=== PATIENT | female | born 1970 | race Caucasian/White ===

== ENCOUNTER 2023-07-20 18:28 | Emergency (ER) | payer OTHER, SELFPAY ==
[2023-07-20 18:45] VITALS: BP 124/80; PULSE 98; RESP 24; TEMP 36.8; O2SAT 90; BMI 34.3
--- NOTE | 2023-07-20 22:26 | ED_ITS ---
HPI - General Adult General Date Seen: 07/20/23 Chief complaint: Shortness of Breath/Dyspnea Stated complaint: asthma, trouble breathing Time Seen by Provider: 07/20/23 18:48 Source: patient and RN notes reviewed Mode of arrival: ambulatory Limitations: no limitations History of Present Illness HPI narrative: Patient is a 52-year-old woman with underlying asthma, she said that she had pretty severe asthma as a child but it has been well controlled as an adult. She was out at dinner, she says she had pizza and a cocktail, started feel short of breath, tried her inhaler on the way here but did not feel like it helped. On arrival she had O2 sats of 90% and was wheezy. By the time I saw her she had had a DuoNeb and was feeling back to normal. She denies any recent illness, cough, shortness of breath, fevers, congestion etcetera. She does not have any known allergies, did not take any ibuprofen or aspirin before this episode. Does not have chest pain, lower extremity swelling or pain. Related Data Allergies Allergy/AdvReac Type Severity Reaction Status Date / Time codeine AdvReac Intermediate Verified 07/20/23 18:51 erythromycin base AdvReac Intermediate Verified 07/20/23 18:51 Review of Systems Status of ROS: Reports: 6 or more systems reviewed and unremarkable except as noted in History and below Exam Narrative: Exam Narrative: Vital signs as noted above. In general, an alert, well-appearing patient. Breathing easily. Head: Normocephalic, atraumatic. Eyes: Pupils are equal reactive. Extraocular movements are full. Conjunctivae are normal. ENT: Mucous membranes are moist. Throat is normal. Neck: Supple without lymphadenopathy. Heart: Regular rate and rhythm. No murmur or rub. Lungs: Clear bilaterally. No increased work of breathing, crackles or wheezes. Extremities: Well perfused. No edema. No calf tenderness. Pulses intact. Neurologic: Patient is alert and oriented to person and place. Speech is fluent. Face is symmetric. Moves all extremities equally. Affect: Normal. Skin: Warm and dry. Well perfused. Const: Vital Signs, click to edit/add: Vital Signs - 24 hr 07/20/23 18:45 Temperature 98.3 F Pulse Rate [Right Pulse Oximeter] 98 Respiratory Rate 24 Blood Pressure [Ri ght Upper Arm] 124/80 Pulse Oximetry 90 Oxygen Delivery Me thod Room Air Documenting provider has reviewed patient's vital signs: yes Course Course ED Course: At the time of my exam, symptoms are resolved status post DuoNeb x1. Her O2 sats are 100% on room air, she has no shortness of breath or wheezing. I have low suspicion of pneumonia, pneumothorax, PE etcetera given her presentation. Offered chest x-ray but also discussed that it is probably low yield and she wo uld like to defer that for tonight. I think it is reasonable to put her on some prednisone for a few days, have her continue to use her rescue inhaler as needed. If she has significant worsening or new symptoms such as chest pain, fever, shortness of breath that does not improve with her rescue inhaler return at any time. Primary care follow-up if she is having repeated episodes of this, as a search for an allergen may be warranted. Vital Signs Vital signs: Initial Vital Signs Temperature 98.3 F 07/20/23 18:45 Temperature Source Temporal Artery Scan 07/20/23 18:45 Pulse Rate 98 07/20/23 18:45 Pulse Rhythm Regular 07/20/23 18:45 Pulse Strength 3+ Normal 07/20/23 18:45 Respiratory Rate 24 07/20/23 18:45 Blood Pressure 124/80 07/20/23 18:45 Blood Pressure Mean 94 07/20/23 18:45 Blood Pressure Position Sitting 07/20/23 18:45 Pulse Oximetry 90 07/20/23 18:45 Oxygen Delivery Method Room Air 07/20/23 18:45 Vital Signs Temperature 98.3 F 07/20/23 18:45 Pulse Rate 98 07/20/23 18:45 Respiratory Rate 24 07/20/23 18:45 Blood Pressure 124/80 07/20/23 18:45 Pulse Oximetry 90 07/20/23 18:45 Oxygen Delivery Method Room Air 07/20/23 18:45 Temperature 98.3 F 07/20/23 18:45 Pulse Rate 98 07/20/23 18:45 Respiratory Rate 24 07/20/23 18:45 Blood Pressure 124/80 07/20/23 18:45 Pulse Oximetry 90 07/20/23 18:45 Oxygen Delivery Method Room Air 07/20/23 18:45 Discharge Plan Discharge Clinical Impression: Asthma with acute exacerbation Patient Disposition: Home, Self-Care Condition: Improved Instructions: Asthma (DC) Additional Instructions: Prednisone as prescribed. For acute worsening not responsive to your rescue inhaler return any time to the emergency department. For new symptoms such as fever, cough, chest pain, return to the emergency department. Recommend primary care follow-up and/or allergy follow-up for recurrent events. Activity Level: No Restrictions Discharge Diet: Regular Stand Alone Forms: [employer] Info Instructions
== END 2023-07-20 19:43 | disposition home or self-care (01) ==
LOC: ED 19:42
PROVIDERS: Emergency Provider Emergency Medicine
DX: J45.901 Unspecified asthma with (acute) exacerbation (principal)
CPT/HCPCS: 99283; 99284

== ENCOUNTER 2024-10-31 20:14 | Emergency (ER) | payer OTHER, SELFPAY ==
--- OUTSIDE RECORDS SUMMARY | 2024-10-31 20:16 | XMS_ITS | Clinical Summary ---
Author Organization [facility] [employer] Address [address] [place] [address] Care Team Providers Care Sales Coach Name Role Phone Trina Brooks APRN, CNP Primary Care Provider Source Comments You are receiving this document as you are listed as the primary care provider,follow-up provider, or the patient has been referred to you for consultation.This is in compliance with the Medicare and[facility] EHR Incentive Program,which states Providers who transition their patient to another setting of careor provider of care or refers their patient to another provider of care shouldprovide summary care record for each transition of care or referral. [employer] Allergies Active Allergy Reactions Criticality Noted Date Comments Codeine 05/03/2010 PN: LW Reaction: unknown Erythromycin 02/23/2008 PN: LW Reaction: GI Upset Other 02/11/2010 PN: LW Other1: -Needs anti nausea medication before narcotics. Review Food Intolerance 05/04/2010 PN: LW FI1: nka LW FI2: nka Wasp Venom Anaphylaxis High 09/13/2018 Medications * This document contains information received from the source organization and may not represent a complete record from that organization. cyanocobalamin (VITAMIN B12) 1000 MCG tablet once a week. 1 Active ALBUterol sulfate HFA 108 (90 Base) MCG/ACT inhalerIndication s:Mild intermittent asthma without complication ([place]) Inhale 2 Puffs every 4 hours as needed for Wheezing. 8.5 g 11 8 Active EPINEPHrine (EPIPEN 2-ARLENE) 0.3 MG/0.3ML injection Inject 0.3 mL (0.3 mg) intramuscularl y. 3 Active sodium fluoride dental (PREVIDENT) 1.1 % gel Apply thin ribbon to teeth with toothbrush or mouthpiece tray for at least 1 minute. Spit out gel and rinse mouth thoroughly. 60 g 6 3 Active sodium fluoride dental (PREVIDENT) 1.1 % gel Apply thin ribbon to teeth with toothbrush for at least 1 minute. Spit out gel and do not rinse mouth eat or drink for 30 min 60 g 6 5 Active Active Problems Problem Noted Date Diagnosed Date Cervical cancer screening 03/19/2018 Overview (03/19/2018): From 03-08-18 office note: Pt would like her pap smear collected as it has been > 7 years since her last pap 2004 NILM ([facility]) 09/2005 LSIL/HSIL ([facility]) 01/2006 LSIL ([facility]) 2010 [place] 2017 ASCUS; HPV NEG 47 y.o. Plan: Cotesting 02/2021 Asthma, intermittent 05/18/2014 Vulvovaginal itching 12/01/2013 Overview (12/01/2013): Wet [place] showed BV, Rx Metrogel Overweight 04/12/2011 Overview (01/03/2017): Overweight(278.02) ([place]) Depression 01/10/2011 Status post bariatric surgery 01/10/2011 B12 deficiency 01/10/2011 Asthma 02/14/2010 Overview (01/03/2017): Asthma NOS Resolved Problems Problem Noted Date Diagnosed Date Resolved Date Morbid obesity 02/14/2010 04/12/2011 Overview (01/03/2017): Obesity Morbid Immunizations Immunization Administration Dates Next Due DT Ped 02/24/1991 Influenza IIV4 (Quadrivalent) 0.5mL (23121) 02/12 Influenza, Unspecified Formulation 04/12/1989 MMR 10/29/1989 Td 05/14/1999 Tdap 01/13/2010 Social History Tobacco Use Types Packs/Day Years Used Date Smoking Tobacco: Former Cigarettes Q uit: 12/13/1999 Smokeless Tobacco: Never Alcohol Use Standard Drinks/Week Comments Yes 0 (1 standard drink = 0.6 oz pure alcohol) Alcoholic Drinks/day: Amount:3-4 drinks every week Comments No Sex and Gender Information Value Date Recorded Sex Assigned at Not on file Legal Sex Female 4:19 PM CDT Gender Identity Not on file Sexual Orientation Not on file Last Filed Vital Signs Vital Sign Reading Time Taken Comments Blood Pressure 109/71 09/23/2018 3:46 PM CDT Pulse 72 08/27/2023 10:28 AM CDT Temperature 36.6 C (97.9 F) 08/25/2016 1:53 PM CDT Respiratory Rate 20 03/08/2018 3:59 PM CDT Oxygen Saturation 98% 03/08/2018 3:59 PM CDT Inhaled Oxygen Concentration - - Weight 96.6 kg (213 lb) 03/08/2018 3:59 PM CDT Height 160 cm (5' 3) 03/08/2018 3:59 PM CDT Body Mass Index 37.73 03/08/2018 3:59 PM CDT Plan of Treatment Upcoming Encounters Date Type Department Care Team (Late st Contact Info) Description 11/19/2024 9:00 AM CDT Appointment [facility] [place] [id number] [place] [phone] [facility] [id number] [place] [address] [phone] Health Maintenance Due Date Last Done Comments Colon Cancer Screening Plan Due 1970 Hep C Screening (Preventive Services) 1970 Adult Preventive Visit 08/25/1987 HepB Vaccine (1) 1988 Pneumococcal Vaccine 50+ Yrs (2 of 2 - PCV) 08/25/2019 08/10/2003 Cholesterol 04/26/2020 04/26/2015, 06/14, 06/09/2013, Additional history exists Cervical Cancer Screening 03/08/2021 03/08/2018 COVID-19 Vaccine ( season) 2024 03/09/2023, 05/09/2022, 04/03/2021, Additional history exists Influenza Vaccine (Season Ended) 2025 03/09/2023, 05/09/2022, 01/31/2019, Additional history exists Mammogram 03/07/2025 03/07/2024, 09/22/2022 DTaP/Tdap/Td Vaccine (5 - Tdap) 08/03/2032 08/03/2022, 01/13/2010, 05/14/1999, Additional history exists HepA Vaccine Aged Out 03/09/2004, 08/10/2003 No lo nger eligible based on patient's age to complete this topic HIV Screening (Preventive Services) Completed 09/27/2005 Zoster/Shingles Vaccine Completed 10/23/2022, 08/03 Hib Vaccine Aged Out No longer eligi ble based on patient's age to complete this topic IPV (Polio) Vaccine Aged Out No longe r eligible based on patient's age to complete this topic MCV4 Vaccine Aged Out No longer eligi ble based on patient's age to complete this topic Meningococcal B Vaccine Aged Out No l onger eligible based on patient's age to complete this topic Procedures Procedure Name Priority Date/Time Associated Diagnosis Comments PAP TEST, ROUTINE Routine 03/08/2018 7:3 5 PM CDT Screening for cervical cancer LIPID PANEL & DIRECT LDL (IF NEEDED) Routine 04/26/2015 10:53 AM PRODUCE BUYER Intestinal malabsorption, unspecified intestinal malabsorption from Last 3 Months or Most Recently Relevant to Health Maintenance Results * PAP TEST, ROUTINE (03/08/2018 7:35 PM CDT) Cytology, Pap (NOTE) Miniature Set Builder Cytology Report Patient Name: LINK WASHINGTON Taken: 03/08/2018 Received: 03/11/2018 Reported: 03/19/2018 Physician(s): TRINA BROOKS Source of Specimen Pap Test, Routine Cervical/Endocer vical: Specimen Adequacy Satisfactory for evaluation. Endocervical component absent. Final Cytologic Interpretation/R esult EPITHELIAL CELL ABNORMALITIES Atypical squamous cells, undetermined significance (ASC-US). *Electronically Signed Out By* MD Tracey Patel(ASCP) Pap Smear History Date of Last Menstrual Period: Menopausal Microscopic Description Microscopic examination is performed. [facility] Department of Pathology [address] [place] [id number] [place] [address] LABORATORIES 03/08/2018 7:35 PM CDT 03/11/2018 2:15 PM CDT Trina Brooks HOSPITALITY SPECIALIST, SITE SAFETY COORDINATOR LAB_1 Final R esult [facility] [phone] * Lipid Panel and Direct LDL(If Needed) (04/26/2015 10:53 AM PRODUCE BUYER) Cholesterol 130 0 - 200 mg/dL HP CONVERSION Triglycerides 53 0 - 149 mg/dL HP CONVERSION HDL Cholesterol 62 >39 mg/dL HP CONVERSION Cholesterol/HDL Ratio Screen 2.1 HP CONVERSION LDL Calculated 57 19 - 130 mg/dL HP CONVERSION Hours Fasting 12.0 HP CONVERSION 04/26/2015 10:5 3 AM PRODUCE BUYER 04/26/2015 11:00 AM PRODUCE BUYER Narrative HP CONVERSION - 04/26/2015 11:40 AM PRODUCE BUYER [place] [address] CLIA number [id number] us Shreya Hoang HOSPITALITY SPECIALIST, SITE SAFETY COORDINATOR LAB_1 Final Result HP CONVERSION from Last 3 Months or Most Recently Relevant to Health Maintenance Insurance [employer] Care Teams Sales Coach Relationship Specialty Start Date End Date Trina Brooks, JOHN, SITE SAFETY COORDINATOR [address] [place] [address] PCP - General Nurse Practitioner 03/08/18
--- OUTSIDE RECORDS SUMMARY | 2024-10-31 20:16 | XMS_ITS | Clinical Summary ---
Author Organization [facility] Address [address] [place] [id number] Care Team Providers Care Farm Operator Name Role Phone Elizabeth Pickett MD Primary Care Provider [phone] Allergies Active Allergy Reactions Criticality Noted Date Comments Codeine 08/25/2005 Erythromycin 08/25/2005 Venom-Wasp Anaphylaxis High 09/13/2018 Medications cyanocobalamin , vitamin B-12, 2,000 mcg tabIndications :S/P gastric bypass,Vitamin B 12 deficiency Take by mouth. 90 Tablet 3 10/05/19 23 Active inhalational spacing deviceIndicati ons:Moderate asthma with exacerbation, unspecified whether persistent (HC) For home use. 1 Each 09/17/19 24 Active EPINEPHrine (EPIPEN) 0.3 mg/0.3 mL auto-injectorI ndications:Bee sting allergy Inject 0.3 mg (1 Pen) intramuscular each time if needed for Allergic Reaction. 2 Each 3 01/18/20 24 Active Ventolin HFA 90 mcg/actuation inhalerIndicat ions:Cough, unspecified type INHALE ONE OR TWO PUFFS BY MOUTH EVERY FOUR HOURS NEEDED FOR SHORTNESS OF BREATH 18 g 10/25/19 25 Active albuterol HFA (PRO-AIR; VENTOLIN; PROVENTIL) 90 mcg/actuation inhalerIndicat ions:Cough, unspecified type Inhale 1-2 Puffs by mouth every 4 hours if needed for Shortness Of Breath. 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 for high grade squamous intraepithelial lesion (HGSIL) on cytologic smear of cervix 09/11/2005 Overview (08/25/2022): 09/2005 LSIL-H; no colposcopy 01/2006 LSIL encompassing SUE I; no colposcopy 02/2018 ASCUS/HPV negative 07/2022 NIL/HPV negative Plan: Pap/HPV due in 3 years Unspecified asthma(493.90) Encounters Date Type Department Care Team Description 10/22/2024 Refill [facility] [address] [place], [place] [id number] Laurie Zhu MD Refill Request (Ventolin Hfa) from Last 3 Months Immunizations Immunization Administration Dates Next Due COVID-19 VACCINE COMIRNATY ( PFIZER-BIONTECH 30MCG/0.3ML) 12YO+ PFS 03/09/2023 COVID-19 vaccine (Pfizer-Bio NTech 30mcg/0.3mL) 12YO+ BIVALENT PF, MDV 05/09/2022 COVID-19 vaccine (Pfizer-Bio NTech 30mcg/0.3mL) PF, MDV 04/03/2021,07/30/2020,07/13/2020 DT (Age < 7 years) 02/24/1991 Hepatitis A (Adult) 03/09/2004,08/10/2003 Hepatitis B (Adult) 03/23/2004 INFLUENZA, IIV3 PF (AGE >= 6 MO) 01/18/2024 Influenza Virus, Unspecified 04/12/1989 Influenza, IIV3 (Age >=3 years) 02/28/2010,03/09 Influenza, IIV4 03/09/2023,05/09/2022,03/08/2018 Influenza, IIV4 (=>6mos) MDV 01/31/2019 MMR 10/29/1989 Pneumococcal Poly,23-Valent (Pneumovax) 08/10/19 04 Td (Age >=7 Years) 05/14/1999 Tdap 08/03/2022,01/13/2010 Zoster (Shingrix-RZV, recombinant) 10/23/2022, Family History Medical History Relation Name Comments No Known Problems Brother Hensley's esophagus Father Cancer-breast Maternal Grandmother Twyla Long Stroke Maternal Grandmother Twyla Long TIA Cancer-colon Maternal Uncle COPD Mother Mom Diverticulitis Mother Mom Hypertension Mother Mom Other Mother Mom from Covid -19 Stroke Paternal Grandfather TIA, fl u Thyroid Disease Paternal Grandmother Heather Cancer-colon Paternal Uncle Orval Diverticulitis Sister Cancer No Family History Cancer-ovarian No Family History Relation Name Status Comments Brother Alive Father Alive Maternal Grandmother Twyla Long Maternal Uncle Mother Mom Paternal Grandfather Paternal Grandmother Heather Paternal Uncle Orval Sister Alive Social History Tobacco Use Types Packs/Day Years Used Date Smoking Tobacco: Former Cigarettes 0.5 15 0 05/14/1984 - 1999 Smokeless Tobacco: Never Tobacco Cessation:Counseling Given: Not Answered Alcohol Use Standard Drinks/Week Comments Yes 2 (1 standard drink = 0.6 oz pur e alcohol) PHQ-2 Answer Date Recorded PHQ-2 TOTAL SCORE 0 01/18/2024 Social Connections Answer Date Recorded Do you often feel lonely or isolated from those around you? 0 01/17/2024 Financial Resource Strain Answer Date R ecorded Difficulty of Paying Living Expenses 3 01/17/2024 Difficulty of Paying Living Expenses Not on file 01/17/2024 Food Insecurity Answer Date Recorded Do you worry your food will run out before you are able to buy more? 1 01/17/2024 Transportation Needs Answer Date Record ed Does lack of transportation keep you from medica l appointments? 1 01/17/2024 Does lack of transportation keep you from work, meetings or getting things that you need? 1 01/17/2024 Housing Stability Answer Date Recorded What is your housing situation today? 1 01/17/2024 Utilities Answer Date Recorded Do you have trouble paying f or utilities (for example, heat, electricity, water, phone)? 1 01/17/2024 Comments No Sex and Gender Information Value Date Recorded Sex Assigned at Not on file Legal Sex Female 5:35 AM BROKE BEATER Gender Identity Not on file Sexual Orientation Not on file Occupation Industry Job Start Date Job End Date unemployed Not on file Not on file Not on file Obstetrics History Last Filed Vital Signs Vital Sign Reading Time Taken Comments Blood Pressure 136/80 01/18/2024 10:48 AM CDT Pulse 71 01/18/2024 10:48 AM CDT Temperature 36.8 C (98.2 F) 08/28/2011 2:14 PM CDT Respiratory Rate 12 08/28/2011 2:14 PM CDT Oxygen Saturation 99% 01/18/2024 10:48 AM CDT Inhaled Oxygen Concentration - - Weight 73.5 kg (162 lb 1.6 oz) 10/28/2012 12:26 PM CDT Height 162.1 cm (5' 3.82) 08/01/2022 1:31 PM CD T Body Mass Index 28.71 08/28/2011 2:14 PM CDT Plan of Treatment Health Maintenance Due Date Last Done Comments BMI (ht and wt on same day) for age 18+ 08/25/1987 Hepatitis B series for 19+ ( 2 of 3 - 19+ 3-dose series) 04/20/2004 03/23/2004 Fecal testing sDNA-FIT ([place] guard) for age 45-75 2014 Pneumococcal series for age 50+ (2 of 2 - PCV) 08/25/2019 08/10/2003 COVID-19 vaccine series ( season) 2024 03/09/2023, 05/09/2022, 04/03/2021, Additional history exists Depression screening for age 12+ 01/17/2025 01/18/2024, 12/19/2022, 11/07/2022, Additional history exists Mammogram for age 45-75 03/07/2025 03/07/20 24, 09/22/2022, 11/25/2012 Pap test for age 21-65 08/01/2025 3, 08/01/2022, 03/08/2018 (Verified in Care Everywhere or Patient Record), Additional history exists Lipids for age 45-75 01/17/2029 01/18/2024, 08/01/2022, 09/27/2005, Additional history exists Tetanus booster 08/03/2032 08/03/2022, 06/2009, 05/14/1999 HIV for age 15-65 Completed 09/27/2005 Hepatitis C screening for ag e 18-79 Completed 08/01/2022 Tdap Completed 08/03/2022, 01/13/2010 Zoster (shingles) series for age 50+ Completed 10/23/2022, 08/03/2022 Influenza Vaccine Completed 01/18/2024, , 05/09/2022, Additional history exists Procedures Procedure Name Priority Date/Time Associated Diagnosis Comments XR MAMMO BENY BILAT SCREEN Routine 03/07/2024 9:12 AM CDT Visit for screening mammogram LIPID PANEL W REFLEX MEASURED LDL Routine 01/18/2024 11:59 AM CDT Lipid screening LC HCV ANTIBODY RFX TO QUANT PCR Routine 08/01/2022 3:13 PM CDT Encounter for hepatitis C screening test for low risk patient HPV HIGH RISK Routine 08/01/2022 2:30 PM CDT Screening for malignant neoplasm of cervix RAPID HIV SCREEN Routine 09/27/2005 10:5 0 AM CDT Hx Of Exposure Hazardous Body Fluids from Last 3 Months or Most Recently Relevant to Health Maintenance Results * XR MAMMO BENY BILAT SCREEN (03/07/2024 9:12 AM CDT) Anatomical Region Laterality Modality BREASTS, Breast Left, Breast Right Bilateral Mammography Impressions 03/10/2024 2:30 PM CDT There is no radiographic evidence for malignancy. Recommend annual mammograms. MAMMOGRAM ASSESSMENT: ACR 1 Negative PATIENTS: You will also receive a letter with your examination results in an easy to read format. If you have questions about your results, please contact your referring provider. Narrative 03/10/2024 2:30 PM CDT For Patients: As a result of the Century Cures Act, medical imaging exams and procedure reports are released immediately into your electronic medical record. You may view this report before your referring provider. If you have questions, please contact your health care provider. XR MAMMO BENY BILAT SCREEN [[id number]] CLINICAL HISTORY: This is an asymptomatic 53 y.o. patient. INDICATION FOR EXAM: Mammogram Screening. TECHNIQUE: CC & MLO views were obtained. This study was evaluated with the assistance of Computer-Aided Detection. Breast Tomosynthesis was used in interpretation. COMPARISON FILM: Yes 09/22/22 [facility] 11/25/12 [facility] FINDINGS: There are scattered areas of fibroglandular density. There are no dominant masses, suspicious micro calcifications or areas of architectural distortion. Enid Robledo PA MAMMO Final Res ult * LIPID PANEL W REFLEX MEASURED LDL (01/18/2024 11:59 AM CDT) CHOLESTEROL,TOTAL 168 100 - 199 mg/dL 01/18/2024 11:55 PM CDT [facility] Comment: Cholesterol, Total Reference Ranges Desirable <200 mg/dL Borderline 200-239 mg/dL High >=240 mg/dL TRIGLYCERIDES 83 <150 mg/dL 01/18/2024 11:55 PM CDT [facility] HDL CHOLESTEROL 76 >40 mg/dL 11:55 PM CDT [facility] NON-HDL CHOLESTEROL 92 <145 mg/dl 01/18/2024 11:55 PM CDT [facility] CHOL/HDL RATIO 2.21 <4.50 01/18/2024 11:55 PM CDT [facility] LDL CHOLESTEROL 75 <=130 mg/dL 01/18/2024 11:55 PM CDT [facility] VLDL CHOLESTEROL 17 <=30 mg/dL 01/18/2024 11:55 PM CDT [facility] PROVIDER ORDERED STATUS RANDOM 01/18/2024 11:55 PM CDT [facility] Blood BLOOD SPECIMEN / Unknown Venipuncture / Unknown 01/18/2024 11:59 AM CDT 01/18/2024 11:59 AM CDT [facility] Final Res ult [facility] [address] [place] [address], * LC HCV ANTIBODY RFX TO QUANT PCR (08/01/2022 3:13 PM CDT) Pathologist [facility] HCV Ab Non Reactive Non Reactive 08/04/2022 2:09 PM CDT [facility] Blood BLOOD SPECIMEN / Unknown Venipuncture / Unknown 08/01/2022 3:13 PM CDT 08/01/2022 3:17 PM CDT Narrative [facility] - 08/04/2022 2:09 PM CDT Performed at: [address] [place] [id number] Sap Portal Architect: Esdras Rico MD, Phone: [phone] [facility] Final Res ult [facility] [address] [place] [address], * HPV HIGH RISK (08/01/2022 2:30 PM CDT) TYPE 16 Negative Negative 08/03/2022 5:08 PM CDT [facility] TYPE 18 Negative Negative 08/03/2022 5:08 PM CDT [facility] OTHER HIGH RISK TYPES Negative Negative 08/03/2022 5:08 PM CDT [facility] Other (Cervical) Non-Blood / Unknown 08/01/2022 2:30 PM CDT 08/02/2022 12:39 PM CDT Narrative [facility] - 08/03/2022 5:08 PM CDT HPV types 16, 18, 31, 33, 35, 39, 45, 51, 52, 56, 58, 59, 66 and 68 DNA were undetectable or below the pre-set threshold. Methodology: Marcos Kortney 4800 HPV Test us [facility] Final Res ult [facility] [address] [place] [address], * RAPID HIV SCREEN (09/27/2005 10:50 AM CDT) RAPID HIV SCREEN Nonreactive [facility] Blood specimen (specimen) BLOOD SPECIMEN / Unknown 09/27/2005 10:50 AM CDT 09/27/2005 10:39 AM CDT Gretchen Bryan MD CHEMISTRY Final R esult [facility] [address], [address] [place], [place] [id number] from Last 3 Months or Most Recently Relevant to Health Maintenance [place] [place] [address] INDIVIDUAL AND FAMILY PLANS Advance Directives * Full Code (Latest Code Status on File) Date Activated Date Inactivated Comments 10/06/2008 11:27 AM 10/06/2008 7:00 PM Care Teams Farm Operator Relationship Specialty Start Date End Date Elizabeth Pickett MD PCP - General 08/05/07
[2024-10-31 20:21] VITALS: BP 127/84; PULSE 94; RESP 20; TEMP 36.8; O2SAT 95; BMI 42.9
--- NOTE | 2024-10-31 20:42 | ED_ITS ---
HPI - SOB/Dyspnea General Time Seen by Provider: 20:42 Date Seen: 10/31/24 Chief Complaint: Shortness of Breath/Dyspnea Stated Complaint: hard time breathing Time Seen by Provider: 10/31/24 20:29 Source: patient and RN notes reviewed Mode of arrival: ambulatory Limitations: no limitations History of Present Illness HPI Narrative: This 54-year-old female with lifelong asthma had an episode starting about 30 minutes prior to arrival. She started to feel tightness in her chest, started coughing, had raspy breathing without any oral pharyngeal swelling. She tried her albuterol inhaler, there was no relief. She has not been sick with anything, no cough or cold symptoms. When she was younger, she had exercise- induced asthma, would have environmental triggers, seasonal allergies. As she grew older, she really only required her albuterol with upper respiratory infections. She had an episode similar in July of 2023. She has not had any problems since then. She is not aware of any contacts. She used to have allergies to cats, has not been exposed to any cats. She has had no sore throat, no nasal drainage, nothing to support any evidence infection or seasonal allergen. MD elicited complaint: cough and asthma attack Related Data Home Medications ?Medication ?Instructions ?Recorded ?Confirmed albuterol sulfate 90 mcg/actuation 1 - 2 puff inhalati on Q4H PRN 10/31/24 10/31/24 aerosol inhaler (Ventolin HFA) dyspnea Allergies Allergy/AdvReac Type Severity Reaction Status Date / Time codeine AdvReac Intermediate Verified 07/20/23 18:51 erythromycin base AdvReac Intermediate Verified 07/20/23 18:51 Review of Systems Narrative: As per HPI. Exam Const: Vital Signs, click to edit/add: Vital Signs - 24 hr 10/31/24 20:21 Temperature 98.3 F Pulse Rate [Pulse Oximeter] 94 Respiratory Rate 20 Blood Pressure [Ri ght Upper Arm] 127/84 Pulse Oximetry 95 Oxygen Delivery Me thod Room Air Patient had already received DuoNeb, she is alert, interactive, no apparent distress. Voice maybe has slight hoarseness but she is able to speak in complete sentences, no stridor. Sclera clear conjugate gaze, symmetrical facial function. Neck is supple, no adenopathy, no thyromegaly masses or nodules. Lungs actually are clear, good air entry, no wheezing crackles, no tachypnea, no accessory muscle use. CV regular rate and rhythm, no murmur, normal S1-S2, no S3-S4. Documenting provider has reviewed patient's vital signs: yes Course Course ED Course: Patient seems to have stabilized with the DuoNeb that was provided appropriately by nursing staff on arrival. She is feeling better, feels like her lungs are back to baseline. She does still feel little hoarse but has not had any oral pharyngeal swelling, no difficulty swallowing. I am going to look at her visit from July of 2023 to see what all was done, see with this entailed. I will be back after I have looked at that. This certainly seems like asthma exacerbation, doubt infectious etiology like pneumonia. With resolution after DuoNeb, highly doubt anything like pneumothorax. Her symptoms were truly respiratory an asthmatic in nature, do not think we need to look at other systems at this time such is vascular, cardiovascular Reevaluation(s) Time of Reevaluation #1: 20:53 Reevaluation #1: Did discuss chest x-ray imaging with her after review of her prior visit in July of last year. We both agree that this really does not seem necessary. The seems like it was asthma triggered by something. The DuoNeb resolved her situation, I did put a pulse oximeter on her and she is 98% now. She feels like her breathing was better. They both feel that last time she was in she was more wheezy, her O2 sats were down to 90% on arrival and after DuoNeb went up to 100% in that visit of July over a year ago. She really is not had any problems unless having a cold. She has not been sick with anything, does not feel ill now. With plan on using prednisone. I am not sure that even giving her a nebulizer with medicines is worthwhile. It has been 16 months between episodes. This certainly could be considered if episodes are more frequent, re-evaluation for possible allergens in use of such medicines like Claritin/Zyrtec/Singulair could be considered. At this time, think it is reasonable to discharge to home with prednisone. Vital Signs Vital signs: Initial Vital Signs Temperature 98.3 F 10/31/24 20:21 Temperature Source Temporal Artery Scan 10/31/24 20:21 Pulse Rate 94 10/31/24 20:21 Respiratory Rate 20 10/31/24 20:21 Blood Pressure 127/84 10/31/24 20:21 Blood Pressure Mean 98 10/31/24 20:21 Blood Pressure Position Sitting 10/31/24 20:21 Pulse Oximetry 95 10/31/24 20:21 Oxygen Delivery Method Room Air 10/31/24 20:21 Vital Signs Temperature 98.3 F 10/31/24 20:21 Pulse Rate 94 10/31/24 20:21 Respiratory Rate 20 10/31/24 20:21 Blood Pressure 127/84 10/31/24 20:21 Pulse Oximetry 95 10/31/24 20:21 Oxygen Delivery Method Room Air 10/31/24 20:21 Temperature 98.3 F 10/31/24 20:21 Pulse Rate 94 10/31/24 20:21 Respiratory Rate 20 10/31/24 20:21 Blood Pressure 127/84 10/31/24 20:21 Pulse Oximetry 95 10/31/24 20:21 Oxygen Delivery Method Room Air 10/31/24 20:21 Discharge Plan Discharge Clinical Impression: Asthma with acute exacerbation Qualifiers: Asthma severity: mild Asthma persistence: intermittent Qualified Code(s): J45.21 - Mild intermittent asthma with (acute) exacerbation Patient Disposition: Home, Self-Care Condition: Stable Instructions: Asthma (ED) Additional Instructions: Start prednisone, 20 mg twice a day for 5 days. This is provided from [employer]. Take the prednisone with food to protect her stomach. Can continue to use albuterol inhaler if needed for any recurrent symptoms of wheezing or cough. If you have recurrence of symptoms that are not responding to the albuterol, have concerns about your breathing status, please seek re-evaluation. Activity Level: Activity as Tolerated Prescriptions: No Action albuterol sulfate [Ventolin HFA] 90 mcg/actuation HFA aerosol inhaler 1 - 2 puff INHALATION Q4H PRN (Reason: dyspnea) Follow Up/Referrals: Provider,Not a Local [Primary Care Provider, Family Practice] Stand Alone Forms: [employer] Info Instructions
[2024-10-31] MEDS: IPRAT-ALBUT 0.5-2.5 MG/3 ML NEB 1 NEB IH (23:55)
== END 2024-10-31 21:27 | disposition home or self-care (01) ==
PROVIDERS: Emergency Provider Family Medicine
DX: J45.901 Unspecified asthma with (acute) exacerbation (principal); R07.89 Other chest pain
CPT/HCPCS: 94640; 94761; 99283; 99284